=== PATIENT | male | born 1980 | race Caucasian/White ===

== ENCOUNTER 2021-12-17 16:32 | Outpatient (CLI) | payer OTHER, SELFPAY ==
[2021-12-17 19:48] LABS: Chloride* 100 mmol/L (96-114); Sodium* 137 mmol/L (135-149)
[2021-12-17 19:49] LABS: Potassium* 4.2 mmol/L (3.6-5.1)
[2021-12-17 19:51] LABS: Cholesterol* 210 mg/dL (90-199); Creatinine* 0.9 mg/dL (0.5-1.5); Estimated Glomerular Filt Rate 109 ml/min
[2021-12-17 19:52] LABS: Blood Urea Nitrogen* 16 mg/dL (5-24); Calcium* 9.7 mg/dL (8.4-10.6); Carbon Dioxide* 28 mmol/L (20-32); Glucose* 105 mg/dL (60-115); Triglycerides* 260 mg/dL (40-149)
[2021-12-17 19:53] LABS: HDL Cholesterol* 57 mg/dL (>=40); LDL Cholesterol Calculated 101 mg/dL (<100)
== END 2021-12-17 16:33 | disposition home or self-care (01) ==
PROVIDERS: PCP Family Medicine; Visit Provider Family Medicine
DX: Z00.00 Encounter for general adult medical examination without abnormal findings (principal); I10 Essential (primary) hypertension; N52.9 Male erectile dysfunction, unspecified
CPT/HCPCS: 80048; 80061

== ENCOUNTER 2022-12-25 08:36 | Outpatient (CLI) | payer OTHER, SELFPAY | END 2022-12-25 08:37 | disposition home or self-care (01) | PROVIDERS: PCP Family Medicine; Visit Provider Family Medicine | DX: Z00.00 Encounter for general adult medical examination without abnormal findings (principal); I10 Essential (primary) hypertension; Z13.6 Encounter for screening for cardiovascular disorders | CPT/HCPCS: 80048; 80061 ==

== ENCOUNTER 2023-07-11 17:39 | Outpatient (CLI) | payer OTHER, SELFPAY | END 2023-07-11 17:40 | disposition home or self-care (01) | LOC: AMB 07-12 15:41 | PROVIDERS: PCP Family Medicine; Visit Provider Emergency Medicine | DX: R55 Syncope and collapse (principal) | CPT/HCPCS: A0998 ==

== ENCOUNTER 2023-07-15 10:56 | Outpatient (CLI) | payer OTHER, SELFPAY | END 2023-07-15 10:57 | disposition home or self-care (01) | PROVIDERS: PCP Family Medicine; Visit Provider Family Medicine | DX: R55 Syncope and collapse (principal) | CPT/HCPCS: 80048; 84443; 85025 ==

== ENCOUNTER 2024-04-09 11:13 | Outpatient (CLI) | payer OTHER, SELFPAY | END 2024-04-09 11:14 | disposition home or self-care (01) | PROVIDERS: PCP Family Medicine; Visit Provider Family Medicine | DX: I10 Essential (primary) hypertension (principal); Z13.220 Encounter for screening for lipoid disorders | CPT/HCPCS: 80048; 80061 ==

== ENCOUNTER 2025-03-07 11:57 | Outpatient (CLI) | payer OTHER, SELFPAY ==
--- NOTE | 2025-03-07 13:09 | P.ANES_ITS ---
Anesthesia Charges Start Date/Time Anesthesia Start Date: 03/07/25 Anesthesia Start Time: 12:39 Stop Date/Time Anesthesia Stop Date: 03/07/25 Anesthesia Stop Time: 13:03 Coding CPT Codes CPT Codes: ANES LWR INTST NDSC NOS - [id number] ([id number]) P3 - PATIENT W/SEVERE SYS DISEASE, QK - SHREDDING FLOOR EQUIPMENT OPERATOR 2-4 CNCRNT ANES PROC
--- NOTE | 2025-03-07 13:09 | W.ANESCHARGE ---
Anesthesia Charges Start Date/Time Anesthesia Start Date: 03/07/25 Anesthesia Start Time: 12:39 Stop Date/Time Anesthesia Stop Date: 03/07/25 Anesthesia Stop Time: 13:03 Coding CPT Codes CPT Codes: ANES LWR INTST NDSC NOS - [id number] ([id number]) P3 - PATIENT W/SEVERE SYS DISEASE, QK - CERTIFIED RETINAL ANGIOGRAPHER 2-4 CNCRNT ANES PROC
--- NOTE | 2025-03-07 14:54 | P.ANES_ITS ---
Anesthesia Charges Start Date/Time Anesthesia Start Date: 03/07/25 Anesthesia Start Time: 12:39 Stop Date/Time Anesthesia Stop Date: 03/07/25 Anesthesia Stop Time: 13:03 Coding CPT Codes CPT Codes: ANES LWR INTST NDSC NOS - [id number] ([id number]) QK - STATIC BALANCER 2-4 CNCRNT ANES PROC, QX - HOSPITALITY ASSOCIATE SVC W/ MED DIRECTION, P3 - PATIENT W/SEVERE SYS DISEASE
--- NOTE | 2025-03-07 14:54 | W.ANESCHARGE ---
Anesthesia Charges Start Date/Time Anesthesia Start Date: 03/07/25 Anesthesia Start Time: 12:39 Stop Date/Time Anesthesia Stop Date: 03/07/25 Anesthesia Stop Time: 13:03 Coding CPT Codes CPT Codes: ANES LWR INTST NDSC NOS - [id number] ([id number]) QK - COGNOS ARCHITECT 2-4 CNCRNT ANES PROC, QX - SENIOR ORACLE APPLICATIONS DEVELOPER SVC W/ MED DIRECTION, P3 - PATIENT W/SEVERE SYS DISEASE
== END 2025-03-07 11:58 | disposition home or self-care (01) ==
LOC: OP CLINIC 11:58
PROVIDERS: PCP Family Medicine; Visit Provider Internal Medicine
DX: Z12.11 Encounter for screening for malignant neoplasm of colon (principal); D12.3 Benign neoplasm of transverse colon
CPT/HCPCS: 00811; 00812; 45380; 88305; J2704